=== PATIENT | female | born 1980 | race Hispanic/Latino ===

== ENCOUNTER 2019-08-22 10:01 | Emergency (ER) | payer BC ==
[2019-08-22] MEDS ORDERED: ONDANSETRON ODT 4 MG TAB ONE ×2 (10:20→13:03)
[2019-08-22] MEDS ORDERED: MORPHINE SULFATE 5 MG/ML VIAL ONE (10:20)
[2019-08-22] MEDS ORDERED: MORPHINE SULFATE 4 MG/1ML SYG ONE (11:59)
== END 2019-08-22 13:23 | disposition home or self-care (01) ==
LOC: EDH 10:01
DX: S52.612A Displaced fracture of left ulna styloid process, initial encounter for closed fracture (principal); S52.502A Unspecified fracture of the lower end of left radius, initial encounter for closed fracture; Z98.51 Tubal ligation status; W18.39XA Other fall on same level, initial encounter; Y93.89 Activity, other specified; Y92.39 Other specified sports and athletic area as the place of occurrence of the external cause; Y99.8 Other external cause status
CPT/HCPCS: 25605; 73100; 73110; 96372 ×2; 99284; J2270 ×2; 29515

== ENCOUNTER 2019-08-31 09:22 | Day surgery (SDC) | payer BC ==
[2019-08-30 12:21] VITALS: BP 118/74
[2019-08-30 12:30] LABS: BASOPHILS % (AUTO) 0.8 % (0.0-5.0); EOSINOPHILS % (AUTO) 3.2 % (0.0-8.0); HEMATOCRIT 40.1 % (36-48); LYMPHOCYTES % (AUTO) 40.9 % (21.0-51.0); MEAN CORPUSCULAR HEMOGLOBIN 31.5 pg (27.0-33.0); MEAN CORPUSCULAR HGB CONC 32.7 g/dL (32.0-36.0); MEAN CORPUSCULAR VOLUME 96.4 fL (79-99); MONOCYTES % (AUTO) 7.7 % (3.0-13.0); NEUTROPHILS % (AUTO) 46.9 % (40.0-77.0); PLATELET COUNT (AUTO) 376 K/uL (130-400); RED BLOOD CELL COUNT(AUTO) 4.16 MIL/uL (4.00-5.50); RED CELL DISTRIBUTION WIDTH 12.8 % (11.0-15.5); WHITE BLOOD COUNT (AUTO) 8.3 K/uL (4.8-10.8)
[2019-08-30 12:57] LABS: CREATININE 0.8 mg/dL (0.5-1.5); POTASSIUM 4.2 mmol/L (3.5-5.1)
[~2019-08-31] VITALS: Ht 165.1 cm; Wt 90.5 kg
[2019-08-31] VITALS (14 sets, daily range): BP systolic 92–131; BP diastolic 50–75
[~2019-08-31 09:22] MED LIST: ACET-66 PO; CALC-1038 PO; MULT1TAB70 PO; NAPR-1023 PO; SULF500T8 PO; TRAM50TA4 PO
[2019-08-31] MEDS ORDERED: LACTATED RINGERS 1000ML 1,000 ML IV ONE (09:59)
[2019-08-31] MEDS ORDERED: CEFAZOLIN SODIUM 1 GM VIAL ONE (09:59)
[2019-08-31] MEDS ORDERED: MIDAZOLAM HCL 1 MG/ML 2ML VIAL ONE (13:42)
[2019-08-31] MEDS ORDERED: PROPOFOL 10 MG/ML 20ML VIAL IV ONE (13:44)
[2019-08-31] MEDS ORDERED: ONDANSETRON HCL 4 MG/2 ML VIAL ONE (13:44)
[2019-08-31] MEDS ORDERED: ROCURONIUM 10MG/1ML SYR 10 MG/ML ML ONE (13:47)
[2019-08-31] MEDS ORDERED: ROPIVACAINE 0.5% 5MG/ML 30ML IJ ONE (13:57)
[2019-08-31] MEDS: CEFAZOLIN SODIUM 1 GM VIAL ONE ×2 (14:15→15:08)
[2019-08-31] MEDS ORDERED: PHENYLEPHRINE HCL 10 MG/ML 1ML VIAL IV ONE (14:22)
[2019-08-31] MEDS ORDERED: FENTANYL CITRATE PF 50 MCG/1 ML 2ML VIAL ONE (14:23)
[2019-08-31] MEDS ORDERED: GLYCOPYRROLATE 1 MG/5 ML SYRINGE ONE (15:39)
[2019-08-31] MEDS ORDERED: NEOSTIGMINE 5MG/5ML SYR IV ONE (15:39)
[2019-08-31] MEDS ORDERED: CEPH500B PO (16:11)
[2019-08-31] MEDS ORDERED: HYDR-4457 PO (16:11)
[2019-09-01] MEDS ORDERED: CEFAZOLIN SODIUM 1 GM VIAL IVP ONE (08:00)
== END 2019-08-31 17:20 | disposition home or self-care (01) ==
LOC: DAH 09:22
PROVIDERS: ATTEND Orthopaedic Surgery
DX: S52.572A Other intraarticular fracture of lower end of left radius, initial encounter for closed fracture (principal); W19.XXXA Unspecified fall, initial encounter; Y93.89 Activity, other specified; Y92.89 Other specified places as the place of occurrence of the external cause; Y99.8 Other external cause status; M06.80 Other specified rheumatoid arthritis, unspecified site; Z79.899 Other long term (current) drug therapy; Z98.51 Tubal ligation status; Z82.49 Family history of ischemic heart disease and other diseases of the circulatory system
CPT/HCPCS: 20690; 25605; 36415; 64415; 73110; 76942; 80048; 85025; A4215; A4221; A4222; A4223; A4565; A4663; A4930 ×2; A6223; A6446; C1776 ×2; J0690 ×2; J2250; J2370; J2405; J2704; J2710; J2795; J3010; J3490; J7120 ×2